=== PATIENT | female | born 1985 | race American Indian/Alaskan Native ===

== ENCOUNTER 2018-02-03 08:02 | Emergency (ER) | payer SELFPAY ==
[2018-02-03 09:09] VITALS: BP 130/75
--- NOTE | 2018-02-03 10:37 | Emergency Department Report ---
ED Female HPI - General Chief complaint: Urogenital-Female Stated complaint: VAGINAL IRRITATION Time Seen by Provider: 02/03/18 09:49 Source: patient Mode of arrival: Ambulatory Limitations: No Limitations - History of Present Illness Initial comments: This is a 32 y.o. female that presents with vaginal discharge for 5 days. Patient reports frequent bacterial vaginitis. She used hotel soap last week and started having discharge 5 days ago. Reports discharge as thin, white, and foul odor. Denies abdominal pain, low back pain, frequency, urgency, dysuria, nausea , and vomiting. MD Complaint: vaginal discharge -: days(s) (5) Severity: moderate Severity scale (0 -10): 0 Consistency: intermittent Improves with: none Worsens with: none Are you Now?: No Last Menstrual Period: 12/30/17 EDC: 10/06/18 Associated Symptoms: vaginal discharge. denies: vaginal bleeding, abdominal pain, nausea/vomiting, fever/chills, headaches, loss of appetite, dysuria, hematuria, rash, seizure, shortness of breath, syncope, weakness - Related Data Sexually active: Yes : 9 Para: 2 A: 6 (4 abortions and 2 miscarriage) Allergies Allergy/AdvReac Type Severity Reaction Status Date / Time No Known Allergies Allergy Unverified 02/03/18 11:41 ED Review of Systems ROS: Stated complaint: VAGINAL IRRITATION Other details as noted in HPI Constitutional: denies: chills, fever Respiratory: denies: cough, shortness of breath, wheezing Cardiovascular: denies: chest pain, palpitations Gastrointestinal: denies: abdominal pain, nausea, vomiting, diarrhea, constipation Genitourinary: discharge. denies: urgency, dysuria, frequency, hematuria, abnormal menses, dyspareunia Musculoskeletal: denies: back pain, joint swelling, arthralgia Neurological: denies: headache, weakness, numbness, paresthesias Psychiatric: denies: anxiety, depression ED Past Medical Hx - Past Medical History Previous Medical History?: No - Surgical History Past Surgical History?: No - Social History Smoking Status: Never Smoker Substance Use Type: None ED Physical Exam - General Limitations: No Limitations General appearance: alert, in no apparent distress - Respiratory Respiratory exam: Present: normal lung sounds bilaterally. Absent: respiratory distress - Cardiovascular Cardiovascular Exam: Present: regular rate, normal rhythm, normal heart sounds. Absent: systolic murmur, diastolic murmur, rubs, gallop - GI/Abdominal GI/Abdominal exam: Present: soft, normal bowel sounds. Absent: distended, tenderness, guarding, rebound, rigid - External exam: Present: normal external exam. Absent: erythema, swelling, lesions, lacerations, ecchymosis, bleeding Speculum exam: Present: vaginal discharge (thick, white, no odor). Absent: erythema, cervical discharge, vaginal bleeding, foreign body, tissue, laceration Bi-manual exam: Present: normal bi-manual exam - Neurological Exam Neurological exam: Present: alert, oriented X3, normal gait - Psychiatric Psychiatric exam: Present: normal affect, normal mood - Skin Skin exam: Present: warm, dry, intact, normal color. Absent: rash ED Course Vital Signs 02/03/18 02/03/18 08:55 09:02 Temperature 99.5 F 98.7 F Pulse Rate 93 H 88 Respiratory 16 Rate Blood Pressure 130/75 Blood Pressure 127/77 [Right] O2 Sat by Pulse 100 Oximetry ED Medical Decision Making - Medical Decision Making This is a 32 y.o. female presents with vaginal discharge for 5 days. Patient was examined by me. Obtained UA, HCG, and wet prep via pelvic exam, results positive HCG. Discussed results with patient. Patient plan to keep . Referral to [facility]. Discharged home in stable condition. F/U with [facility]. Critical care attestation.: If time is entered above; I have spent that time in minutes in the direct care of this critically ill patient, excluding procedure time. ED Disposition Clinical Impression: Vaginal discharge, Positive urine test Disposition: TO HOME OR SELFCARE Is pt being admited?: No Does the pt Need Aspirin: No Condition: Stable Instructions: (ED) Additional Instructions: Follow up with [facility] from referral at [facility] next week. Return to ER if vaginal bleeding, abdominal pain, or passing blood clots. Referrals: LOUIE PANIAGUA MD [Staff Physician] - 3-5 Days [facility] [Provider Group] - 3-5 Days [facility] [[facility]] - 3-5 Days Forms: Work/School Release Form(ED) Time of Disposition: 11:46 Print Language: CITIZEN OF [place]
[2018-02-03 11:09] LABS: Bilirubin,Urine NEG (Negative); Blood,Urine NEG (Negative); Color,Urine Yellow (Yellow); Mucus,Urine 2+ /HPF; Protein,Urine <15 mg/dL mg/dL (Negative); Urobilinogen,Urine < 2.0 mg/dL (<2.0); WBC,Urine < 1.0 /HPF (0.0-6.0)
[2018-02-03 11:11] LABS: HCG Qualitative,Urine Positive (Negative)
== END 2018-02-03 11:53 | disposition home or self-care (01) ==
LOC: ED 08:02
DX: N76.0 Acute vaginitis (principal); Z32.01 Encounter for pregnancy test, result positive
CPT/HCPCS: 81001; 81025; 87210; 87591; 99283

== ENCOUNTER 2018-06-15 08:33 | Emergency (ER) | payer MEDICAID, OTHER ==
[2018-06-15] MEDS ORDERED: TYLENOL ONE (08:42)
[2018-06-15] MEDS ORDERED: TYLENOL PO ONE (08:43)
[2018-06-15] MEDS ORDERED: NACL 0.9% 500 ML 500 ML IV ONE (08:43)
[2018-06-15 09:05] LABS: Basophils % (Auto) 0.4 % (0.0-1.8); Hematocrit 35.2 % (30.3-42.9); Hemoglobin 11.5 gm/dl (10.1-14.3); Lymphocytes # (Auto) 1.5 K/mm3 (1.2-5.4); Lymphocytes % (Auto) 12.6 % (13.4-35.0); Mean Corpuscular HGB Conc 33 % (30-34); Mean Corpuscular Volume 72 fl (79-97); Monocytes # (Auto) 1.2 K/mm3 (0.0-0.8); Monocytes % (Auto) 10.2 % (0.0-7.3); Platelet Count 153 K/mm3 (140-440); Red Blood Count 4.87 M/mm3 (3.65-5.03); Red Cell Distribution Width 12.9 % (13.2-15.2)
[2018-06-15 09:11] LABS: Mean Corpuscular Hemoglobin 24 pg (28-32)
[2018-06-15 09:15] LABS: INR 0.99 (0.87-1.13)
[2018-06-15 09:22] LABS: Alanine Aminotransferase 46 units/L (7-56); Albumin 3.6 g/dL (3.9-5); BUN/Creatinine Ratio 12; Blood Urea Nitrogen 6 mg/dL (7-17); Calcium 8.7 mg/dL (8.4-10.2); Hemolysis Index 0
[2018-06-15] MEDS ORDERED: TORADOL IV ONE (10:23)
[2018-06-15] MEDS ORDERED: NACL 0.9% 1000 ML 1,000 ML IV ONE (10:38)
--- NOTE | 2018-06-15 10:45 | Emergency Department Report ---
HPI - General Chief Complaint: Fever Time Seen by Provider: 06/15/18 10:22 - HPI HPI: 32-year-old AA female presents to the emergency department with complaint of a fever, sore throat, body aches, chills, mixed dry and productive cough that has been going on for the past 1-2 days. She has not taken anything for her symptoms at presentation. She is about 6 months . She denies any abdominal pain, vaginal bleeding, dysuria, vaginal discharge. She goes to [facility] for [employer] but does not have a primary care physician. No recent travel or sick contacts at home. ED Past Medical Hx - Past Medical History Previous Medical History?: No - Surgical History Past Surgical History?: Yes Additional Surgical History: cyst removed from throat 1998 - Social History Smoking Status: Never Smoker Substance Use Type: None - Medications Home Medications: Home Medications Medication Instructions Recorded Confirmed Last Taken Type Amoxicillin/Potassium Clav 1 each PO BID #14 tablet 06/15/18 Unknown Rx [Augmentin 500-125 Tablet] ED Review of Systems ROS: Stated complaint: COUGHING/CHEST/SORE THROAT Other details as noted in HPI Comment: All other systems reviewed and negative Constitutional: chills, fever Eyes: denies: eye pain, eye discharge, vision change ENT: throat pain. denies: ear pain Respiratory: cough. denies: shortness of breath Cardiovascular: denies: chest pain, palpitations Gastrointestinal: denies: abdominal pain, nausea, diarrhea Genitourinary: denies: urgency, dysuria, discharge Musculoskeletal: myalgia. denies: joint swelling Skin: denies: rash, lesions Neurological: denies: headache, weakness, paresthesias Physical Exam - Physical Exam Vital Signs: Vital Signs 06/15/18 08:40 Temperature 101.5 F H Pulse Rate 119 H Respiratory 18 Rate Blood Pressure 123/64 O2 Sat by Pulse 99 Oximetry Physical Exam: GENERAL: The patient is well-developed well-nourished. HENT: Normocephalic. Atraumatic. Patient has moist mucous membranes. There is no tonsillar hypertrophy, erythema or exudates but the posterior pharynx is hypervascular with some signs of postnasal drip. EYES: Extraocular motions are intact. Pupils equal reactive to light bilaterally. NECK: Supple. Trachea is midline. CHEST/LUNGS: Clear to auscultation. A productive; is heard during examination. There is no respiratory distress noted. HEART/CARDIOVASCULAR: Regular. There is mild tachycardia. There is no murmur. ABDOMEN: Abdomen is soft, nontender. Patient has normal bowel sounds. There is no abdominal distention. SKIN: Skin is warm and dry. NEURO: The patient is awake, alert, and oriented. The patient is cooperative. The patient has no focal neurologic deficits. The patient has normal speech. Cranial nerves II through XII grossly intact. MUSCULOSKELETAL: There is no tenderness or deformity. There is no limitation range of motion. There is no evidence of acute injury. ED Course Vital Signs 06/15/18 08:40 Temperature 101.5 F H Pulse Rate 119 H Respiratory 18 Rate Blood Pressure 123/64 O2 Sat by Pulse 99 Oximetry ED Medical Decision Making - Lab Data Result diagrams: 06/15/18 08:52 06/15/18 08:52 - Medical Decision Making Patient presents with a sore throat, fever, body aches and a cough. Labs are mostly unremarkable with the patient may have a very mild urinary tract infection. Chest x-ray was read by radiology as concern for lingular pneumonia. Patient's fever was treated and resolved with Tylenol and her tachycardia also resolved with some IV fluid resuscitation. Patient is feeling better and appears safe for discharge home at this time. She will go home with antibiotics that'll cover both pneumonia and urinary tract infection. She has been encouraged to see her [employer], since she is , but has also been given referrals for primary care physicians. She will return to the ER with any worsening of her symptoms or any acute distress. - Differential Diagnosis pneumonia, UTI, strep pharyngitis, viral URI Critical Care Time: No Critical care attestation.: If time is entered above; I have spent that time in minutes in the direct care of this critically ill patient, excluding procedure time. ED Disposition Clinical Impression: Qualifiers: Weeks of gestation: unspecified Qualified Code(s): Z34.90 - Encounter for supervision of normal , unspecified, unspecified trimester Fever Qualifiers: Fever type: unspecified Qualified Code(s): R50.9 - Fever, unspecified Pneumonia Qualifiers: Pneumonia type: due to unspecified organism Laterality: left Lung location: lower lobe of lung Qualified Code(s): J18.1 - Lobar pneumonia, unspecified organism Disposition: DC-01 TO HOME OR SELFCARE Is pt being admited?: No Condition: Stable Instructions: Community-acquired Pneumonia (ED), Bacterial Pneumonia (ED) Prescriptions: Amoxicillin/Potassium Clav [Augmentin 500-125 Tablet] 1 each PO BID #14 tablet Referrals: JOHNNY, Radha [Other] - 2-3 Days [facility] [Outside] - 2-3 Days ORI ARELLANO MD [Staff Physician] - 2-3 Days Forms: Work/School Release Form(ED) Time of Disposition: 13:29
--- NOTE | 2018-06-15 11:50 | XRay Report ---
AP CHEST: HISTORY: Cough, fever There is suggestion of subtle patchy infiltrate in the superior lingula which could represent an early infiltrate. The remainder of the lungs are clear. No pleural effusion or pneumothorax. Normal heart and mediastinal structures. Normal bony thorax. IMPRESSION: Possible early lingular pneumonia.
[2018-06-15 12:07] LABS: Bacteria,Urine 2+ /HPF (Negative); Bilirubin,Urine NEG (Negative); Blood,Urine NEG (Negative); Color,Urine Yellow (Yellow); Mucus,Urine FEW /HPF; Protein,Urine <15 mg/dL mg/dL (Negative); Urobilinogen,Urine < 2.0 mg/dL (<2.0)
[2018-06-15 13:29] VITALS: BP 100/46
== END 2018-06-15 14:05 | disposition home or self-care (01) ==
LOC: ED 08:33
DX: O26.892 Other specified pregnancy related conditions, second trimester (principal); J18.1 Lobar pneumonia, unspecified organism; Z3A.24 24 weeks gestation of pregnancy
CPT/HCPCS: 36415; 71045; 80053; 81001; 82140; 82805; 85025; 85610; 87040; 87086; 93005; 93010; 99284; J7030; J7040; 96360

== ENCOUNTER 2018-06-16 11:20 | Emergency (ER) | payer OTHER ==
[2018-06-16 11:26] VITALS: BP 136/72
--- NOTE | 2018-06-16 12:09 | Emergency Department Report ---
Chief Complaint: Fever Stated Complaint: COUGH Time Seen by Provider: 06/16/18 11:58 - HPI History of Present Illness: Patient is a 32-year-old Female who is 6 months who is here for cough, congestion and body aches and fever. Patient seen here yesterday diagnosed with a lingular pneumonia and started on amoxicillin. Patient states she had a fever 102 and was concerned and came back symptoms other than the symptoms that were evaluated yesterday. - ROS Review of Systems: All other systems reviewed are negative - Exam Vital Signs: Vital Signs 06/16/18 11:23 Temperature 102.1 F H Pulse Rate 127 H Respiratory 18 Rate Blood Pressure 136/72 O2 Sat by Pulse 99 Oximetry Physical Exam: Patient is alert and oriented 3 and is nontoxic-appearing. Patient is is tachycardic lungs are clear to auscultation abdomen soft nontender skin exam is within normal limits. Neurologic exam she is a and O 3. HEENT exam is normal. Extraocular movements are intact. MSE screening note: Focused history and physical exam performed. Due to findings the following was ordered: ED Medical Decision Making - Medical Decision Making Patient's sat down and we discussed a fever and the benefits of a working immune system. Did explain the physiology of her heart rate is most likely elevated secondary to fever. We also discussed that the patient most likely would not be 100% better at this time. Also discuss sepsis what that was and how she was already ruled out for sepsis yesterday. Patient feels more comfortable now and will be discharged home she will continue with her antibiotics. Patient to take Tylenol every 4 hours. ED Disposition for MSE Clinical Impression: Fever Qualifiers: Fever type: unspecified Qualified Code(s): R50.9 - Fever, unspecified Pneumonia Qualifiers: Pneumonia type: due to unspecified organism Laterality: right Lung location: middle lobe of lung Qualified Code(s): J18.1 - Lobar pneumonia, unspecified organism Qualifiers: Weeks of gestation: unspecified Qualified Code(s): Z34.90 - Encounter for supervision of normal , unspecified, unspecified trimester Is pt being admited?: No Does the pt Need Aspirin: No Condition: Stable Instructions: Community-acquired Pneumonia (ED), Fever in Adults (ED) Referrals: PRIMARY CARE, [Primary Care Provider] - 3-5 Days
== END 2018-06-16 12:15 | disposition home or self-care (01) ==
LOC: ED 11:20
DX: O99.512 Diseases of the respiratory system complicating pregnancy, second trimester (principal); J18.9 Pneumonia, unspecified organism; Z3A.24 24 weeks gestation of pregnancy
CPT/HCPCS: 99282